=== PATIENT | female | born 1960 | race Hispanic/Latino ===

== ENCOUNTER 2023-11-07 16:35 | Emergency (ER) | payer BC ==
[~2023-11-07] VITALS: Ht 165.1 cm; Wt 61.2 kg
[~2023-11-07 16:35] MED LIST: IBUPROFEN200 MG PO; TYLENOL325 MG PO
[2023-11-07] MEDS: LACTATED RINGER'S 1,000 ML INJ ONE (17:32)
[2023-11-07] MEDS: KETOROLAC TROMETHAMINE 30 MG/ML VIAL IV ONE (17:33)
[2023-11-07] MEDS ORDERED: CEFDINIR300 MG PO (18:14)
[2023-11-07 18:37] VITALS: PULSE 67; RESP 18; TEMP 97.4; O2SAT 100
== END 2023-11-07 18:40 | disposition home or self-care (01) ==
LOC: FSED 16:55
DX: R35.0 Frequency of micturition (principal); N39.0 Urinary tract infection, site not specified; M54.50 Low back pain, unspecified
CPT/HCPCS: 74176; 80048; 80076; 81003; 85025; 99284; J0696; J1885; J7121